=== PATIENT | female | born 2000 | race Caucasian/White ===

== ENCOUNTER 2018-06-10 02:08 | Emergency (ER) | payer SELFPAY ==
[~2018-06-10] VITALS: Ht 167.6 cm; Wt 61.4 kg
[2018-06-10 02:11] VITALS: BP 118/80; PULSE 98; TEMP 97.7
[2018-06-10] MEDS ORDERED: CEPHALEXIN500 M1 PO (03:26)
== END 2018-06-10 03:56 | disposition home or self-care (01) ==
LOC: COL.ER 02:08
DX: S61.210A Laceration without foreign body of right index finger without damage to nail, initial encounter (principal); W23.0XXA Caught, crushed, jammed, or pinched between moving objects, initial encounter; Y92.511 Restaurant or cafe as the place of occurrence of the external cause

== ENCOUNTER 2018-06-20 11:30 | Emergency (ER) | payer BC ==
[~2018-06-20 11:30] MED LIST: CEPHALEXIN500 M1 PO
[2018-06-20 11:48] VITALS: BP 110/69; PULSE 95; TEMP 97.8
== END 2018-06-20 11:49 | disposition home or self-care (01) ==
LOC: COL.ER 11:30
DX: S61.210D Laceration without foreign body of right index finger without damage to nail, subsequent encounter (principal)